=== PATIENT | male | born 1980 | race Caucasian/White ===

== ENCOUNTER → 2020-03-26 | Day surgery (SDC) | payer MEDICAID ==
[2020-03-21 11:24] LABS: CLARITY,URINE SLIGHTLY CLOUDY (Clear); COLOR,URINE YELLOW (Yellow); GLUCOSE, URINE NEGATIVE (Neg); KETONES,URINE NEGATIVE (Neg); LEUKOCYTE ESTERASE ,URINE NEGATIVE (Neg); NITRITES, URINE NEGATIVE (Neg); OCCULT BLOOD,URINE NEGATIVE (Neg); PH,URINE 7.5 (4.8-8.0); PROTEIN,URINE NEGATIVE (Neg); UROBILINOGEN,URINE 0.2 E.U/dL (0.2-1.0)
[2020-03-21 11:25] LABS: BASOPHILS % (AUTO) 0.7 % (0-1); EOSINOPHILS # (AUTO) 0.1 X10'3 (0-0.9); EOSINOPHILS % (AUTO) 1.1 % (0-6); LYMPHOCYTES # (AUTO) 1.7 X10'3 (1.1-4.8); LYMPHOCYTES % (AUTO) 26.3 % (21-51); MEAN CORPUSCULAR HEMOGLOBIN 30.4 PG (27.0-31.0); MEAN CORPUSCULAR HGB CONC 33.9 g/dL (33.0-36.5); MEAN CORPUSCULAR VOLUME 89.6 FL (78-98); MEAN PLATELET VOLUME 7.6 FL (7.4-10.4); MONOCYTES # (AUTO) 0.5 X10'3 (0-0.9); MONOCYTES % (AUTO) 7.9 % (2-12); NEUTROPHILS # (AUTO) 4.2 X10'3 (1.8-7.7); PRE OP HEMATOCRIT 43.8 % (42.0-52.0); PRE OP HEMOGLOBIN 14.9 g/dL (14.0-17.9); PRE OP PLATELET COUNT 245 X10'3 (140-440); RED BLOOD COUNT 4.89 X10'6 (4.70-6.10); RED CELL DISTRIBUTION WIDTH 12.6 % (11.5-14.5)
[2020-03-21 11:29] LABS: UA COLLECTION TYPE CLN CATCH MIDSTREAM
[2020-03-21 11:30] LABS: AMORPHOUS PHOSPHATES 2+; BACTERIA,URINE NONE SEEN /HPF (Neg); MUCUS STRANDS MODERATE /LPF (Neg); RBC,URINE NONE SEEN /HPF (0-2); SQUAMOUS EPITHELIAL CELL,UR FEW /LPF (FEW); WBC,URINE NONE SEEN /HPF (0-4)
[2020-03-21 11:39] LABS: ALBUMIN/GLOBULIN RATIO 1.2 (1.1-1.5); ALKALINE PHOSPHATASE 60 IU/L (46-116); BLOOD UREA NITROGEN 17 MG/DL (7-18); BUN/CREATININE RATIO 19.5 (5.4-32.0); CALCIUM 8.5 MG/DL (8.5-10.1); CHLORIDE 105 MMOL/L (99-107); CREATININE 0.87 MG/DL (0.60-1.10); PRE OP ALT 39 U/L (30-65); PRE OP ANION GAP 4 (8-16); PRE OP AST 20 U/L (10-37); PRE OP BILIRUB, TOTAL 0.6 MG/DL (0.0-1.0); PRE OP GLUCOSE 92 MG/DL (70-104); PRE OP POTASSIUM 4.1 MMOL/L (3.4-5.1); PRE OP SODIUM 140 MMOL/L (135-145); TOTAL CARBON DIOXIDE 30.6 MMOL/L (24-32); TOTAL PROTEIN 7.3 G/DL (6.4-8.2); eGFR > 90 ML/MIN
[2020-03-26] VITALS (10 sets, daily range): BP systolic 120–170; BP diastolic 70–87
[~2020-03-26] VITALS: Ht 188 cm; Wt 89.4 kg
[~2020-03-26] MED LIST: BUPIVAcaine/PF 2.5 mg/ml (0.25%) 30ml vial ONE; CETI-90 PO; HYDROcodone/acetaminophen 10/325mg tab PO ONE; LIDOcaine 2% (20mg/ml) 5ml vial ONE; ceFAZolin 1000mg inj ONE; ceFAZolin 2gm in dextrose, iso 50 ML IV ONE; dexamethasone sod phosphate 4mg/ml inj. ONE; famotidine 20mg tablet PO ONE; fentaNYL/PF 50MCG/1 ML 2ML syringe ONE; glycopyrrolate 0.2mg/ml inj ONE; hydrALAZINE 20mg/ml inj. IV ONE; labetalol 20mg/4ml (5mg/ml) syringe IV ONE; meperidine/PF 25mg/ml syringe IV PRN; meperidine/PF 50mg/ml syringe ONE; midazolam 2 mg/2 ml injection ONE; morphine 2 MG/ML inj. syringe IV PRN; morphine 4 MG/ML inj SYRINge IV PRN; neostigmine methylsulfate 1 MG/ML 10ml vial ONE; ondansetron/PF 4mg/2ml inj IV PRN; ondansetron/PF 4mg/2ml inj ONE; proCHLORperazine 10 MG/2 ml inj IV PRN; propofol inj 20 ML IV ONE; ringers solution, lacted 1,000 ML IV SCH; rocuronium 10mg/ml inj IV ONE; sevoflurane 250ml liquid IH ONE
--- NOTE | 2020-03-26 12:58 | NUR ---
ARRIVED IN PACU VIA GURNEY FROM OR WITH DR ROACH IN ATTENDANCE. REPORT RECEIVED. SLEEPY. VS STABLE
--- NOTE | 2020-03-26 13:28 | NUR ---
SITTING UP. VS STABLE. MEDICATED FOR PAIN. SHAVONNE WATER AND CRACKERS.
--- NOTE | 2020-03-26 14:15 | NUR ---
UP AMBULATED TO BR WITHOUT INCIDENT. VOIDED APPROX 1/2 CUP. REVIEWED DISCHARGE INSTRUCTIONS WITH PT. READY FOR DISCHARGE WHEN WHEN GETS HERE
--- NOTE | 2020-03-26 14:48 | NUR ---
TO CAR, VIA W/C, ASSISTED BY NURSE. REVIEWED INSTRUCTIONS WITH
--- NOTE | 2020-03-26 16:24 | NUR ---
PT INSTRUCTED TO NURSE PRIVATE DUTY PAIN MEDS AT PHARMACY, THEY WERE SCRIPTED IN BY SURGEONS OFFICE Addendum: 03/26/20 at 1625 by Sandra Lind RN Amended: Links added.
== END | disposition home or self-care (01) ==
LOC: PAS 08:43
PROVIDERS: ATTEND Surgery
DX: K40.90 Unilateral inguinal hernia, without obstruction or gangrene, not specified as recurrent (principal); J45.909 Unspecified asthma, uncomplicated; F41.9 Anxiety disorder, unspecified; F12.90 Cannabis use, unspecified, uncomplicated; Z87.891 Personal history of nicotine dependence; Z79.899 Other long term (current) drug therapy; Z11.59 Encounter for screening for other viral diseases
CPT/HCPCS: 36415; 49505; 80053; 81001; 82948; 85025; 87635; 93005; C1713; C1781; J0690; J1100; J2001; J2175; J2250; J2405; J2704; J2710; J3010; J3490; A4215; A4314; A4618; A6258; J7120

== ENCOUNTER 2021-07-08 17:29 | Emergency (ER) | payer MEDICAID ==
[~2021-07-08] VITALS: Ht 188 cm; Wt 86.5 kg
[~2021-07-08 17:29] MED LIST changes: -BUPIVAcaine/PF 2.5 mg/ml (0.25%) 30ml vial ONE; -HYDROcodone/acetaminophen 10/325mg tab PO ONE; -LIDOcaine 2% (20mg/ml) 5ml vial ONE; -ceFAZolin 1000mg inj ONE; -ceFAZolin 2gm in dextrose, iso 50 ML IV ONE; -dexamethasone sod phosphate 4mg/ml inj. ONE; -famotidine 20mg tablet PO ONE; -fentaNYL/PF 50MCG/1 ML 2ML syringe ONE; -glycopyrrolate 0.2mg/ml inj ONE; -hydrALAZINE 20mg/ml inj. IV ONE; -labetalol 20mg/4ml (5mg/ml) syringe IV ONE; -meperidine/PF 25mg/ml syringe IV PRN; -meperidine/PF 50mg/ml syringe ONE; -midazolam 2 mg/2 ml injection ONE; -morphine 2 MG/ML inj. syringe IV PRN; -morphine 4 MG/ML inj SYRINge IV PRN; -neostigmine methylsulfate 1 MG/ML 10ml vial ONE; -ondansetron/PF 4mg/2ml inj IV PRN; -ondansetron/PF 4mg/2ml inj ONE; -proCHLORperazine 10 MG/2 ml inj IV PRN; -propofol inj 20 ML IV ONE; -ringers solution, lacted 1,000 ML IV SCH; -rocuronium 10mg/ml inj IV ONE; -sevoflurane 250ml liquid IH ONE
[2021-07-08 17:45] VITALS: BP 159/99
[2021-07-08] MEDS ORDERED: ondansetron 4mg rapidly disintigrating tab PO ONE ×3 (17:50→20:35)
[2021-07-08] MEDS ORDERED: morphine 4 MG/ML inj SYRINge IM ONE ×2 (17:50→20:35)
[2021-07-08 18:25] LABS: BASOPHILS % (AUTO) 0.2 % (0-1); EOSINOPHILS % (AUTO) 0.1 % (0-6); HEMATOCRIT 43.1 % (42.0-52.0); HEMOGLOBIN 14.4 g/dl (14.0-17.9); LYMPHOCYTES % (AUTO) 9.3 % (21-51); MEAN CORPUSCULAR HEMOGLOBIN 29.5 PG (27.0-31.0); MEAN CORPUSCULAR HGB CONC 33.5 g/dL (33.0-36.5); MEAN CORPUSCULAR VOLUME 88.1 FL (78-98); MEAN PLATELET VOLUME 7.7 FL (7.4-10.4); MONOCYTES # (AUTO) 0.4 X10'3 (0-0.9); MONOCYTES % (AUTO) 3.4 % (2-12); NEUTROPHILS # (AUTO) 9.8 X10'3 (1.8-7.7); PLATELET COUNT 280 X10'3 (140-440); RED BLOOD COUNT 4.89 X10'6 (4.70-6.10); RED CELL DISTRIBUTION WIDTH 12.6 % (11.5-14.5); WHITE BLOOD COUNT 11.2 X10'3 (4.5-11.0)
[2021-07-08] MEDS ORDERED: ketorolac trometh. 30mg/ml inj. IV ONE (18:30)
[2021-07-08] MEDS ORDERED: normal saline 1000ML IV soln IV ONE (18:30)
[2021-07-08] MEDS ORDERED: iohexol 300mg/ml 100ml inj. ONE (18:38)
[2021-07-08 18:39] LABS: ALANINE AMINOTRANSFERASE 32 U/L (12-78); ALBUMIN 4.4 G/DL (3.4-5.0); ALBUMIN/GLOBULIN RATIO 1.3 (1.1-1.5); ALKALINE PHOSPHATASE 78 IU/L (46-116); ANION GAP 12 (8-16); ASPARTATE AMINO TRANSFERASE 18 U/L (10-37); BILIRUBIN,TOTAL 0.6 MG/DL (0.1-1.0); BLOOD UREA NITROGEN 15 MG/DL (7-18); BUN/CREATININE RATIO 14.7 (5.4-32.0); CALCIUM 8.7 MG/DL (8.5-10.1); CHLORIDE 106 MMOL/L (99-107); CREATININE 1.02 MG/DL (0.60-1.10); GLUCOSE 138 MG/DL (70-104); POTASSIUM 4.7 MMOL/L (3.5-5.1); SODIUM 145 MMOL/L (135-145); TOTAL CARBON DIOXIDE 27.1 MMOL/L (24-32); TOTAL PROTEIN 7.7 G/DL (6.4-8.2); eGFR 80 ML/MIN
[2021-07-08 18:40] LABS: LIPASE 148 U/L (73-393)
[2021-07-08] MEDS ORDERED: oxyCODONE/APAP 5-325mg tablet PO ONE (19:50)
[2021-07-08] MEDS ORDERED: ONDA4TAB6 PO (19:51)
[2021-07-08] MEDS ORDERED: KETO10TA2 PO (19:51)
[2021-07-08] MEDS ORDERED: OXYC-145 PO (19:51)
[2021-07-08] MEDS ORDERED: FLO0.4C PO (19:51)
[2021-07-08] MEDS: tamsulosin 0.4mg capsule PO SCH ×2 (20:09→20:11)
[2021-07-08 20:20] LABS: CLARITY,URINE CLEAR (Clear); COLOR,URINE YELLOW (Yellow); GLUCOSE, URINE NEGATIVE (Neg); KETONES,URINE >=80 mg/dl (Neg); LEUKOCYTE ESTERASE ,URINE NEGATIVE (Neg); NITRITES, URINE NEGATIVE (Neg); OCCULT BLOOD,URINE LARGE (Neg); PH,URINE 7.5 (4.8-8.0); PROTEIN,URINE TRACE mg/dl (Neg); UROBILINOGEN,URINE 0.2 E.U/dL (0.2-1.0)
[2021-07-08 20:56] LABS: UA COLLECTION TYPE CLN CATCH MIDSTREAM
[2021-07-08 20:58] LABS: WBC,URINE NONE SEEN /HPF (0-4)
[2021-07-08 20:59] LABS: BACTERIA,URINE NONE SEEN /HPF (Neg); RBC,URINE 20-50 /HPF (0-2); SQUAMOUS EPITHELIAL CELL,UR NONE SEEN /LPF (FEW)
== END 2021-07-08 20:51 | disposition home or self-care (01) ==
LOC: ER 17:30
DX: N20.0 Calculus of kidney (principal); R11.2 Nausea with vomiting, unspecified; R10.32 Left lower quadrant pain; F12.90 Cannabis use, unspecified, uncomplicated; Z98.890 Other specified postprocedural states; Z79.899 Other long term (current) drug therapy
CPT/HCPCS: 36415; 74177; 80053; 81001; 83690; 85025; 93005; 96372; 96374; 99285; J1885; J2270; J7030; Q9967